=== PATIENT | female | born 1980 | race Native Hawaiian/Other Pacific Islander ===

== ENCOUNTER 2017-03-08 13:22 | Emergency (ER) | payer OTHER ==
[2017-03-08 13:22] VITALS: BMI 45.3
[2017-03-08 13:28] VITALS: BP 127/89; PULSE 86; RESP 18; TEMP 98.6; O2SAT 100
--- NOTE | 2017-03-08 13:33 | ED PDOC ---
HPI: General Adult Time Seen by Provider: 03/08/17 13:32 Chief Complaint (Nursing): Flu-like Symptoms Chief Complaint (Provider): fever, body aches History Per: Patient Additional Complaint(s): 37-year-old female with no past medical history presents to emergency department with generalized body aches and tactile fever 4 days. Patient has been taking Tylenol which has helped only minimally. She did not measure her temperature but has felt warm but the past few days. Patient has had dry cough with slight chest pain, no associated shortness of breath or dyspnea on exertion. She denies any recent travel or known sick contacts. No associated nausea, vomiting, diarrhea or abdominal pain. Past Medical History Reviewed: Historical Data, Nursing Documentation, Vital Signs Vital Signs: Last Vital Signs Temp 98.6 F 03/08/17 13:24 Pulse 86 03/08/17 13:24 Resp 18 03/08/17 13:24 BP 127/89 03/08/17 13:24 Pulse Ox 100 03/08/17 16:18 - Medical History PMH: No Chronic Diseases - Surgical History Surgical History: (x 1) - Family History Family History: States: No Known Family Hx - Living Arrangements Living Arrangements: With Family - Social History Current smoker - smoking cessation education provided: No Alcohol: None Drugs: Denies - Home Medications Home Medications: Ambulatory Orders Medication Instructions Recorded Ibuprofen [Motrin Tab] 600 mg PO Q6H PRN #30 tab 09/03/16 Labetalol [Trandate] 200 mg PO BID #60 tab 09/03/16 oxyCODONE/Acetaminophen [Percocet 1 ea PO Q4H PRN #30 tab 09/03/16 5/325 mg Tab] - Allergies Allergies/Adverse Reactions: Allergies Allergy/AdvReac Type Severity Reaction Status Date / Time No Known Allergies Allergy Verified 08/28/16 20:00 Review of Systems ROS Statement: Except As Marked, All Systems Reviewed And Found Negative Constitutional: Positive for: Fever (tactile, not measured), Other (body aches) Cardiovascular: Positive for: Chest Pain Respiratory: Positive for: Cough (dry). Negative for: Shortness of Breath, SOB with Exertion Gastrointestinal: Negative for: Nausea, Vomiting, Abdominal Pain, Diarrhea Genitourinary Female: Negative for: Dysuria, Vaginal Discharge, Vaginal Bleeding Neurological: Negative for: Headache, Dizziness Physical Exam - Reviewed Nursing Documentation Reviewed: Yes Vital Signs Reviewed: Yes - Physical Exam Appears: Positive for: Well, Non-toxic, No Acute Distress Head Exam: Positive for: ATRAUMATIC, NORMAL INSPECTION Skin: Negative for: Rash Eye Exam: Positive for: Normal appearance, EOMI, PERRL ENT: Negative for: Pharyngeal Erythema Neck: Positive for: Painless ROM Cardiovascular/Chest: Positive for: Regular Rate, Rhythm Respiratory: Positive for: Normal Breath Sounds. Negative for: Respiratory Distress Gastrointestinal/Abdominal: Positive for: Normal Exam, Soft. Negative for: Tenderness, Distended, Guarding, Hernia Back: Negative for: L CVA Tenderness, R CVA Tenderness, Vertebral Tenderness Extremity: Negative for: Pedal Edema Neurologic/Psych: Positive for: Alert, Oriented, Gait (steady) - Laboratory Results Result Diagrams: 03/08/17 14:14 03/08/17 15:11 Urine POC: Negative - ECG Interpretation Of ECG: NSR 85 bpm, no acute finding, reviewed by PA and ED attending O2 Sat by Pulse Oximetry: 100 Pulse Ox Interpretation: Normal - Other Rad Bedside chest X-Ray: Interpreted by Me, Viewed By Me X-Ray Interpretation: no acute finding, no infiltrate Medical Decision Making Medical Decision Makin37 year old with tactile fever and body aches for 4 days Patient is afebrile, well-appearing, nontoxic-appearing upon arrival, no fever noted, vital signs are stable. Plan: Blood cultures CBC CMP UA and culture Urine test IVF PO motrin CXR EKG Rapid strep and throat culture Potassium elevated but sample was hemolyzed, repeat was obtained and is within normal limits. Patient is aware of all diagnostic testing results, all questions answered. Patient feels better after fluids and Motrin. She was advised to continue with NSAIDs and was instructed to follow up with primary doctor in 2-3 days. Patient is aware she can return to ED any time if acutely worse. Disposition - Clinical Impression Clinical Impression: Viral illness - Patient ED Disposition Is Patient to be Admitted: No Counseled Patient/Family Regarding: Studies Performed, Diagnosis, Need For Followup - Disposition Referrals: Cali Reynolds MD [Family Provider] - Disposition: Routine/Home Disposition Time: 16:42 Condition: STABLE Additional Instructions: Alternate Tylenol every 4 hours and ibuprofen every 6 hours for fever and body aches. Rest and drink plenty of fluids. Follow-up with primary doctor in 2-3 days or return to emergency department any time if acutely worse. Instructions: Viral Syndrome (ED) Results - Lab Results Lab Results: 03/08/17 03/08/17 03/08/17 15:11 14:42 14:38 WBC RBC Hgb Hct MCV MCH MCHC RDW Plt Count MPV Neut % (Auto) Lymph % (Auto) Dickenson % (Auto) Eos % (Auto) Baso % (Auto) Neut # Lymph # Dickenson # Eos # Baso # Sodium Potassium 4.2 Chloride Carbon Dioxide Anion Gap BUN Creatinine Est GFR ( Amer) Est GFR (Non-Af Amer) Random Glucose Calcium Total Bilirubin AST ALT Alkaline Phosphatase Troponin I < 0.0120 Total Protein Albumin Globulin Albumin/Globulin Ratio Urine Color Yellow Urine Clarity Clear Urine pH 6.0 Ur Specific [place] 1.019 Urine Protein 100 Urine Glucose (UA) Neg Urine Ketones Negative Urine Blood Negative Urine Nitrate Negative Urine Bilirubin Negative Urine Urobilinogen 0.2-1.0 Ur Leukocyte Esterase Neg Urine RBC (Auto) 3 Urine Microscopic WBC 6 H Ur Squamous Epith Cells 5 Urine Bacteria Rare Influenza Typ A,B (EIA) Grp A Beta Strep Ag 03/08/17 03/08/17 03/08/17 14:14 14:14 14:14 WBC RBC Hgb Hct MCV MCH MCHC RDW Plt Count MPV Neut % (Auto) Lymph % (Auto) Dickenson % (Auto) Eos % (Auto) Baso % (Auto) Neut # Lymph # Dickenson # Eos # Baso # Sodium 136 Potassium 5.3 H Chloride 101 Carbon Dioxide 23 Anion Gap 17 BUN 9 Creatinine 0.5 L Est GFR ( Amer) > 60 Est GFR (Non-Af Amer) > 60 Random Glucose 104 Calcium 8.7 Total Bilirubin 0.9 AST 44 H D ALT 38 Alkaline Phosphatase 83 Troponin I Total Protein 9.0 H Albumin 4.3 Globulin 4.7 H Albumin/Globulin Ratio 0.9 L Urine Color Urine Clarity Urine pH Ur Specific [place] Urine Protein Urine Glucose (UA) Urine Ketones Urine Blood Urine Nitrate Urine Bilirubin Urine Urobilinogen Ur Leukocyte Esterase Urine RBC (Auto) Urine Microscopic WBC Ur Squamous Epith Cells Urine Bacteria Influenza Typ A,B (EIA) Negative for flu a/b Grp A Beta Strep Ag Negative 03/08/17 14:14 WBC 11.8 H RBC 4.66 Hgb 12.8 D Hct 39.4 MCV 84.5 MCH 27.6 MCHC 32.6 L RDW 13.7 Plt Count 345 MPV 7.5 Neut % (Auto) 66.8 Lymph % (Auto) 21.1 Dickenson % (Auto) 9.1 Eos % (Auto) 2.6 Baso % (Auto) 0.4 Neut # 7.9 H Lymph # 2.5 Dickenson # 1.1 H Eos # 0.3 Baso # 0.1 Sodium Potassium Chloride Carbon Dioxide Anion Gap BUN Creatinine Est GFR ( Amer) Est GFR (Non-Af Amer) Random Glucose Calcium Total Bilirubin AST ALT Alkaline Phosphatase Troponin I Total Protein Albumin Globulin Albumin/Globulin Ratio Urine Color Urine Clarity Urine pH Ur Specific [place] Urine Protein Urine Glucose (UA) Urine Ketones Urine Blood Urine Nitrate Urine Bilirubin Urine Urobilinogen Ur Leukocyte Esterase Urine RBC (Auto) Urine Microscopic WBC Ur Squamous Epith Cells Urine Bacteria Influenza Typ A,B (EIA) Grp A Beta Strep Ag
[2017-03-08] MEDS ORDERED: Sodium Chloride 0.9% 1,000 ML IV STA (14:00)
[2017-03-08 14:40] LABS: BASO # 0.1 K/uL (0.0-0.2); BASO % 0.4 % (0.0-2.0); EOS # 0.3 K/uL (0.0-0.7); EOS % 2.6 % (0.0-4.0); HEMATOCRIT 39.4 % (34.0-47.0); LYMPH # 2.5 K/uL (1.0-4.3); LYMPH % 21.1 % (20.0-40.0); MEAN CELL VOLUME 84.5 fl (81.0-99.0); MEAN CORPUSCULAR HEMOGLOBIN 27.6 pg (27.0-31.0); MEAN CORPUSCULAR HGB CONC 32.6 g/dL (33.0-37.0); MEAN PLATELET VOLUME 7.5 fl (7.2-11.7); MONO # 1.1 K/uL (0.0-0.8); MONO % 9.1 % (0.0-10.0); NEUT # 7.9 K/uL (1.8-7.0); NEUT % 66.8 % (50.0-75.0); RED CELL DISTRIBUTION WIDTH 13.7 % (11.5-14.5); WHITE BLOOD COUNT 11.8 K/uL (4.8-10.8)
[2017-03-08 14:50] LABS: ALB/GLOB RATIO 0.9 (1.0-2.1); ALKALINE PHOSPHATASE 83 U/L (38-126); ALT/SGPT 38 U/L (9-52); AST/SGOT 44 U/L (14-36); BILIRUBIN,TOTAL 0.9 mg/dl (0.2-1.3); BLOOD UREA NITROGEN 9 mg/dl (7-17); CALCIUM 8.7 mg/dL (8.4-10.2); CARBON DIOXIDE 23 mmol/L (22-30); CHLORIDE 101 mmol/L (98-107); GFR AFRICAN-AMERICAN > 60; GLUCOSE,RANDOM 104 mg/dL (65-105); SODIUM 136 mmol/l (132-148)
[2017-03-08 14:53] LABS: POTASSIUM 5.3 MMOL/L (3.6-5.0)
[2017-03-08 14:54] LABS: RBC URINE 3 /hpf (0-3); URINE BACTERIA RARE (<OCC); URINE BILIRUBIN NEGATIVE (NEGATIVE); URINE BLOOD NEGATIVE (NEGATIVE); URINE COLOR YELLOW (YELLOW); URINE GLUCOSE (UA) NEG (Normal); URINE KETONE NEGATIVE (NEGATIVE); URINE LEUKOCYTE ESTERASE NEG Leu/uL (Negative); URINE PROTEIN 100 mg/dL (NEGATIVE); URINE UROBILINOGEN 0.2-1.0 mg/dL (0.2-1.0); WBC URINE 6 /hpf (0-5)
--- NOTE | 2017-03-08 15:57 | RAD ---
HISTORY: clearance COMPARISON: No prior. FINDINGS: LUNGS: No active pulmonary disease. PLEURA: No significant pleural effusion identified, no pneumothorax apparent. CARDIOVASCULAR: Normal. OSSEOUS STRUCTURES: No significant abnormalities. VISUALIZED UPPER ABDOMEN: Normal. OTHER FINDINGS: None. IMPRESSION: No active disease.
--- NOTE | 2017-03-10 09:01 | CARD ---
APPROVED REPORT EKG Measurement Heart [id number] <Conclusion> Normal sinus rhythm Normal ECG
== END 2017-03-08 17:14 | disposition home or self-care (01) ==
LOC: H.ER 13:22
DX: B34.9 Viral infection, unspecified (principal); R05 Cough; R07.89 Other chest pain

== ENCOUNTER 2018-01-15 16:01 | Emergency (ER) | payer BC, OTHER ==
[2018-01-15 16:02] VITALS: BMI 45.3
[2018-01-15 16:12] VITALS: PULSE 90; TEMP 98.7; O2SAT 99
--- NOTE | 2018-01-15 16:37 | ED PDOC ---
HPI: General Adult Time Seen by Provider: 01/15/18 16:17 Chief Complaint (Nursing): Shortness Of Breath Chief Complaint (Provider): Shortness Of Breath History Per: Patient History/Exam Limitations: no limitations Onset/Duration Of Symptoms: Days (x3) Current Symptoms Are (Timing): Still Present Additional Complaint(s): 37 y/o female who presents to the ED complaining of frontal headache, bone pain , and increased bowel movements x3 days. Patient states she had similar symptoms when she was last . LMP 12/25/17. Reports taking Tylenol with relief of pain. Denies OCP or recent travel. PMD: Provider TBD Past Medical History Reviewed: Historical Data, Nursing Documentation, Vital Signs Vital Signs: Last Vital Signs Temp 98.7 F 01/15/18 16:08 Pulse 90 01/15/18 16:08 Resp 17 01/15/18 17:17 BP Pulse Ox 99 01/15/18 18:37 - Medical History PMH: No Chronic Diseases - Surgical History Surgical History: (x 1) - Family History Family History: States: Unknown Family Hx - Social History Current smoker - smoking cessation education provided: No Alcohol: None - Home Medications Home Medications: Ambulatory Orders Medication Instructions Recorded Ibuprofen [Motrin Tab] 600 mg PO Q6H PRN #30 tab 09/03/16 Labetalol [Trandate] 200 mg PO BID #60 tab 09/03/16 oxyCODONE/Acetaminophen [Percocet 1 ea PO Q4H PRN #30 tab 09/03/16 5/325 mg Tab] Naproxen [Naprosyn] 500 mg PO BID PRN #15 tablet 01/15/18 - Allergies Allergies/Adverse Reactions: Allergies Allergy/AdvReac Type Severity Reaction Status Date / Time No Known Allergies Allergy Verified 01/15/18 16:06 Review of Systems ROS Statement: Except As Marked, All Systems Reviewed And Found Negative Constitutional: Positive for: Other ("bones hurt") Respiratory: Positive for: Shortness of Breath Gastrointestinal: Positive for: Other (increased bowel movements) Neurological: Positive for: Headache Physical Exam - Reviewed Nursing Documentation Reviewed: Yes Vital Signs Reviewed: Yes - Physical Exam Appears: Positive for: Non-toxic, No Acute Distress (speaking full sentences) Head Exam: Positive for: ATRAUMATIC, NORMAL INSPECTION, NORMOCEPHALIC Skin: Positive for: Normal Color, Warm, Dry. Negative for: Rash Eye Exam: Positive for: EOMI, Normal appearance, PERRL ENT: Positive for: Other (mucous membranes dry) Neck: Positive for: Normal, Painless ROM, Supple Cardiovascular/Chest: Positive for: Regular Rate, Rhythm. Negative for: Murmur Respiratory: Positive for: Normal Breath Sounds. Negative for: Respiratory Distress Gastrointestinal/Abdominal: Positive for: Normal Exam, Bowel Sounds, Soft. Negative for: Tenderness Back: Positive for: Normal Inspection. Negative for: L CVA Tenderness, R CVA Tenderness, Vertebral Tenderness Extremity: Positive for: Normal ROM. Negative for: Pedal Edema, Deformity Neurologic/Psych: Positive for: Alert, Oriented. Negative for: Motor/Sensory Deficits Comments: Patient is morbidly obese. - Laboratory Results Result Diagrams: 01/15/18 17:10 01/15/18 17:10 - ECG Interpretation Of ECG: NSR @ 80, no ST-T changes. O2 Sat by Pulse Oximetry: 99 (RA) Pulse Ox Interpretation: Normal - Radiology X-Ray: Interpreted by [facility] X-Ray Interpretation: No Acute Disease Medical Decision Making Medical Decision Making: Time: 16:34 Impression: Headache and dyspnea Initial Plan: --CT Head w/o contrast --EKG --CMP --Urine dipstick --Urine --CBC --D Dimer --PTT/PT --CXR --Glucose, Blood, POC --Urinalysis --Reevaluation Accession No. : [id number] Patient Name / ID : LETA Pisano / [id number] Exam Date : 01/15/2018 17:33:12 ( Approved ) Study Comment : Sex / Age : F / 37Y Creator : Ignacio Izaguirre MD Dictator : Ignacio Izaguirre MD Operations Lieutenant : Collar Worker : Ignacio Izaguirre MD Approver2 : Report Date : 01/15/2018 18:13:35 My Comment : HISTORY: SOB COMPARISON: Frontal chest radiograph 03/08/2017. TECHNIQUE: Chest PA and lateral FINDINGS: LUNGS: No active pulmonary disease. PLEURA: No significant pleural effusion identified. No pneumothorax apparent. CARDIOVASCULAR: Normal. OSSEOUS STRUCTURES: No significant abnormalities. VISUALIZED UPPER ABDOMEN: Normal. OTHER FINDINGS: None. IMPRESSION: No interval acute cardiopulmonary disease appreciated. Accession No. : [id number] Patient Name / ID : LETA Pisano / [id number] Exam Date : 01/15/2018 17:26:00 ( Approved ) Study Comment : Sex / Age : F / 37Y Creator : Ignacio Izaguirre MD Dictator : Ignacio Izagurire MD Operations Lieutenant : Collar Worker : Ignacio Izaguirre MD Approver2 : Report Date : 01/15/2018 18:07:41 My Comment : PROCEDURE: CT HEAD WITHOUT CONTRAST. HISTORY: STUBBS COMPARISON: None available. TECHNIQUE: Axial computed tomography images were obtained through the head/brain without intravenous contrast. Radiation dose: Total exam DLP = 828.37 mGy-cm. This CT exam was performed using one or more of the following dose reduction techniques: Automated exposure control, adjustment of the mA and/or kV according to patient size, and/or use of iterative reconstruction technique. FINDINGS: HEMORRHAGE: No intracranial hemorrhage. BRAIN: No mass effect or edema. No atrophy or chronic microvascular ischemic changes. VENTRICLES: Unremarkable. No hydrocephalus. CALVARIUM: Unremarkable. PARANASAL SINUSES: Unremarkable as visualized. No significant inflammatory changes. MASTOID AIR CELLS: Unremarkable as visualized. No inflammatory changes. OTHER FINDINGS: None. IMPRESSION: Unremarkable unenhanced CT of the Head. Scribe Attestation: Documented by Jaime Metcalf, acting as a scribe for Penelope Goode MD. Provider Scribe Attestation: All medical record entries made by the Scribe were at my direction and personally dictated by me. I have reviewed the chart and agree that the record accurately reflects my personal performance of the history, physical exam, medical decision making, and the department course for this patient. I have also personally directed, reviewed, and agree with the discharge instructions and disposition. Disposition - Clinical Impression Clinical Impression: Viral syndrome - Disposition Referrals: Rm Villa MD [Staff Provider] - Disposition: Routine/Home Disposition Time: 18:48 Condition: STABLE Prescriptions: Naproxen [Naprosyn] 500 mg PO BID PRN #15 tablet PRN Reason: Pain, Moderate (4-7) Instructions: Viral Syndrome (DC) Forms: [employer] (Ukrainian)
[2018-01-15 17:20] VITALS: RESP 17
[2018-01-15 17:32] LABS: SQUAMOUS EPITHIAL < 1 /hpf (0-5); URINE BILIRUBIN NEGATIVE (NEGATIVE); URINE BLOOD NEGATIVE (NEGATIVE); URINE CLARITY CLEAR (Clear); URINE COLOR YELLOW (YELLOW); URINE GLUCOSE (UA) 150 mg/dL (Normal); URINE LEUKOCYTE ESTERASE NEG Leu/uL (Negative); URINE PROTEIN 30 mg/dL (NEGATIVE); URINE UROBILINOGEN 0.2-1.0 mg/dL (0.2-1.0)
[2018-01-15 17:43] LABS: BASO # 0.1 K/uL (0.0-0.2); BASO % 0.5 % (0.0-2.0); EOS # 0.2 K/uL (0.0-0.7); EOS % 1.6 % (0.0-4.0); HEMOGLOBIN 14.2 g/dL (12.0-16.0); LYMPH # 5.3 K/uL (1.0-4.3); LYMPH % 36.1 % (20.0-40.0); MEAN CELL VOLUME 86.7 fl (81.0-99.0); MEAN CORPUSCULAR HEMOGLOBIN 28.5 pg (27.0-31.0); MEAN CORPUSCULAR HGB CONC 32.9 g/dL (33.0-37.0); MEAN PLATELET VOLUME 8.4 fl (7.2-11.7); MONO # 1.4 K/uL (0.0-0.8); MONO % 9.6 % (0.0-10.0); NEUT # 7.6 K/uL (1.8-7.0); NEUT % 52.2 % (50.0-75.0); NRBC % 0.1 % (0.0-0.0); RBC 4.97 Mil/uL (3.80-5.20); RED CELL DISTRIBUTION WIDTH 13.6 % (11.5-14.5); WHITE BLOOD COUNT 14.6 K/uL (4.8-10.8)
[2018-01-15 17:57] LABS: ALBUMIN 4.1 g/dL (3.5-5.0); ALT/SGPT 61 U/L (9-52); AST/SGOT 27 U/L (14-36); BLOOD UREA NITROGEN 17 mg/dl (7-17); CALCIUM 9.6 mg/dL (8.4-10.2); GFR AFRICAN-AMERICAN > 60; GFR NON-AFRICAN AMERICAN > 60
[2018-01-15 18:09] LABS: INR 0.9 (0.9-1.2)
--- NOTE | 2018-01-15 18:09 | CT ---
PROCEDURE: CT HEAD WITHOUT CONTRAST. HISTORY: STUBBS COMPARISON: None available. TECHNIQUE: Axial computed tomography images were obtained through the head/brain without intravenous contrast. Radiation dose: Total exam DLP = 828.37 mGy-cm. This CT exam was performed using one or more of the following dose reduction techniques: Automated exposure control, adjustment of the mA and/or kV according to patient size, and/or use of iterative reconstruction technique. FINDINGS: HEMORRHAGE: No intracranial hemorrhage. BRAIN: No mass effect or edema. No atrophy or chronic microvascular ischemic changes. VENTRICLES: Unremarkable. No hydrocephalus. CALVARIUM: Unremarkable. PARANASAL SINUSES: Unremarkable as visualized. No significant inflammatory changes. MASTOID AIR CELLS: Unremarkable as visualized. No inflammatory changes. OTHER FINDINGS: None. IMPRESSION: Unremarkable unenhanced CT of the Head.
[2018-01-15 18:10] LABS: PARTIAL THROMBOPLASTIN TIME 33.9 Seconds (25.6-37.1)
--- NOTE | 2018-01-15 18:14 | RAD ---
HISTORY: SOB COMPARISON: Frontal chest radiograph 03/08/2017. TECHNIQUE: Chest PA and lateral FINDINGS: LUNGS: No active pulmonary disease. PLEURA: No significant pleural effusion identified. No pneumothorax apparent. CARDIOVASCULAR: Normal. OSSEOUS STRUCTURES: No significant abnormalities. VISUALIZED UPPER ABDOMEN: Normal. OTHER FINDINGS: None. IMPRESSION: No interval acute cardiopulmonary disease appreciated.
--- NOTE | 2018-01-16 10:02 | CARD ---
APPROVED REPORT EKG Measurement Heart [id number] PA 162P43 [id number] <Conclusion> Normal sinus rhythm Normal ECG
== END 2018-01-15 18:52 | disposition home or self-care (01) ==
LOC: H.ER 16:01
DX: B34.9 Viral infection, unspecified (principal); E66.01 Morbid (severe) obesity due to excess calories